=== PATIENT | male | born 1995 | race Caucasian/White ===

== ENCOUNTER 2016-10-28 03:51 | Emergency (ER) | payer OTHER ==
[2016-10-28] MEDS ORDERED: KETOROLAC 30 MG/ML VIAL (J1885) As Ordered ONE (04:24)
[2016-10-28 04:46] LABS: ABG BASE EXCESS 1.3 (-2.0-2.0); ABG DEVICE NASAL CANN; ABG HCO3 25.7 MEQ/L (22.0-26.0); ABG PARTIAL PRESSURE CO2 39.9 mmHg (35.0-45.0); ABG PARTIAL PRESSURE O2 91.5 mmHg (75.0-100.0); ABG STANDARD HCO3 25.6 MEQ/L (22.0-26.0); ABG TOTAL CO2 26.9 MEQ/L (22.0-29.0); ABG pH (ARTERIAL) 7.426 UNITS (7.350-7.450)
--- NOTE | 2016-10-28 05:15 | EDDOCDS ---
Nurse's Notes [facility] Name: Jh Nash Age: 21 yrs Sex: Male : 1995 Arrival Date: 10/28/2016 Time: 03:51 Bed 7 Private MD: Diagnosis: Pleurodynia Presentation: 10/28 03:56 Presenting complaint: Patient states: Right chest pain since Friday morning. Painful to kmg1 breath. Acute neurological deficits are not present. Mechanism of Injury: No Mechanism of Injury. Suicide/Homicide risk assessment- the patient denies having any suicidal and/or homicidal ideations and does not present with any other emotional, behavioral or mental health complaints. Status: Patient is not a wind turbine service technician or dependent. Transition of care: patient was not received from another setting of care. 03:56 Acuity: SINGH Level 3 kmg1 03:56 Method Of Arrival: Walkin/Carried/Asstd kmg1 05:14 Adult Sepsis Screening: The patient does not have new or worsening altered mentation. jp6 Patient's respiratory rate is less than 22. Systolic blood pressure is greater than 100. Patient has a qSOFA score of 0- Negative Sepsis Screen. Triage Assessment: 04:01 General: Appears in no apparent distress, comfortable, Behavior is appropriate for age, kmg1 cooperative, pleasant. Pain: Location: xyphoid area and right breast Pain currently is 3 out of 10 on a pain scale. At worst was 5 out of 10 on a pain scale. Quality of pain is described as sharp, Aggravated by breathing and coughing. HIV screening NA for this visit Offered previously. Respiratory: Airway is patent Respiratory effort is even, unlabored, Respiratory pattern is regular, symmetrical, Reports pain with respiration. Musculoskeletal: No deficits noted. Historical: - Allergies: No known drug Allergies; - Home Meds: 1. levothyroxine 150 mcg Oral tab 1 tab once daily (Last dose: 10/27/2016) 2. Mucinex 600 mg oral Ta12 1 tab as needed (Last dose: 10/25/2016) 3. multivitamin Oral tab 1 tablet daily (Last dose: 10/27/2016) 4. Novalog S/S Insulin Pump - PMHx: Diabetes - IDDM: controlled; Hypothyroidism; - PSHx: dental surgery; right knee meniscus repair (2008); right meniscus removal (2009); - Social history: Smoking status: Chewing Tobacco No barriers to communication noted, The patient speaks fluent Turkish, Speaks appropriately for age. - Family history: Not pertinent. - : The pt / caregiver states he / she is not on anticoagulants. Home medication list is obtained from the patient. - Exposure Risk Screening:: None identified. Screenin:14 Screening information is obtained from the patient. Fall risk: No risks identified. jp6 Assistance ADL's: requires no assistance with activities of daily living. Abuse/DV Screen: The patient / caregiver reports he/she is: not in a situation that causes fear, pain or injury. Nutritional screening: No deficits noted. Advance Directives: Currently, there is no health care proxy. There is no active DNR order. There is no living will. home support is adequate. Assessment: 04:14 Reassessment: Patient states symptoms have not improved. General: Appears jp6 uncomfortable, well developed, Behavior is appropriate for age, cooperative. Pain: Location: right breast Quality of pain is described as aching, Is since Friday am Aggravated by cougfhing. Neurological: No deficits noted. EENT: Reports has sinus infection x 3 days. Cardiovascular: Capillary refill < 3 seconds Heart tones S1 S2 present Rhythm is regular. Respiratory: Airway is patent Respiratory effort is even, unlabored, Respiratory pattern is regular, symmetrical, Breath sounds are diminished bilaterally. GI: No deficits noted. : No deficits noted. Derm: No deficits noted. Musculoskeletal: No deficits noted. 05:12 Reassessment: Patient states symptoms have improved. General: Appears in no apparent jp6 distress, comfortable, Behavior is appropriate for age, cooperative. Pain: Location: right breast Pain currently is 4 out of 10 on a pain scale. Quality of pain is described as aching. Cardiovascular: Rhythm is regular. Respiratory: Airway is patent Respiratory effort is even, unlabored, Respiratory pattern is regular, symmetrical. Derm: Skin is pink, warm & dry. Vital Signs: 04:01 BP 137 / 92; Pulse 107; Resp 18; Temp 98.0(O); Pulse Ox 98% on R/A; Weight 127.01 kg kmg1 (R); Height 6 ft. 3 in. (190.50 cm) (R); Pain 3/10; 05:04 BP 142 / 81; Pulse 91; Resp 20; Temp 98.4(TE); Pulse Ox 97% on R/A; Pain 0/10; jmv 04:01 Body Mass Index 35.00 (127.01 kg, 190.50 cm) [facility] Vitals: 04:01 Log In Time: October 28, 2016 at 03:33. [facility] ED Course: 03:52 Patient visited by Milady Dennison Reg. hs2 03:52 Patient moved to Waiting hs2 03:57 Triage Initiated [facility] 04:05 Patient moved to 7 km 04:07 Slime Piper,RN is Primary Nurse. jp6 04:08 Brandon Vela DO is Attending Physician. cs11 04:08 Patient visited by Brandon Vela DO. cs11 04:14 The patient / caregiver is instructed regarding the plan of care and ED course. jp6 04:26 Patient visited by Lorna Stapleton PCA. anabela 04:26 EKG done. (by ED staff). Reviewed by Brandon Vela DO. anabela 04:33 -Arterial Blood Gas: room air Sent. bb3 04:42 [facility] Payment Agreement was scanned into [employer] and attached to record. lja 05:05 Patient visited by Manjit Urbina PCA. jmv 05:12 No IV's were initiated during this patient's visit. No procedures done that require jp6 assistance. Administered Medications: 04:29 Drug: ketorolac 60 mg [ketorolac 30 mg/mL (1 mL) injection solution (2 mL)] Route: IM; jp6 Site: left deltoid; RT: 04:34 ABG's drawn from right radial artery pressure held for 5 minutes no bleeding noted bb3 pressure bandage applied specimen sent pt. tolerated well. Oxygen is room air. Order Results: Lab Order: -Arterial Blood Gas: room air; SPEC'M 10/28/16 04:29 Test: ABG pH (ARTERIAL); Value: 7.426; Range: 7.350-7.450; Units: UNITS; Status: F Test: ABG PARTIAL PRESSURE CO2; Value: 39.9; Range: 35.0-45.0; Units: mmHg; Status: F Test: ABG PARTIAL PRESSURE O2; Value: 91.5; Range: 75.0-100.0; Units: mmHg; Status: F Test: ABG TOTAL CO2; Value: 26.9; Range: 22.0-29.0; Units: MEQ/L; Status: F Test: ABG HCO3; Value: 25.7; Range: 22.0-26.0; Units: MEQ/L; Status: F Test: ABG BASE EXCESS; Value: 1.3; Range: -2.0-2.0; Status: F Test: ABG STANDARD HCO3; Value: 25.6; Range: 22.0-26.0; Units: MEQ/L; Status: F Test: ABG O2 SATURATION; Value: 97.6; Range: 95.0-99.0; Units: %; Status: F Test: ABG DEVICE; Value: NASAL MATILDA; Status: F Outcome: 04:54 Discharge ordered by Provider. cs11 05:12 Discharge Assessment: Patient awake, alert and oriented x 3. No cognitive and/or jp6 functional deficits noted. Patient verbalized understanding of disposition instructions. patient administered narcotics - no. The following High Risk Discharge criteria are identified: None. Discharged to home ambulatory. Condition: improved. Discharge instructions given to patient, Instructed on discharge instructions, follow up and referral plans. medication usage, Demonstrated understanding of instructions, medications, Pt was receptive of discharge instructions/ teaching. Prescriptions given X 1. No special radiology studies were completed. Property sent home with patient. 05:14 Patient left the ED. jp6 Signatures: Melinda Khan, RN RN kmg1 Garry Foster bb3 Lorna Stapleton, LACE MENDER LACE MENDER Brandon Koroma, DO cs11 Keenanl, Milady White, Reg Reg hs2 Slime Piper RN RN jp6 Manjit Urbina, LACE MENDER LACE MENDER jmv Corrections: (The following items were deleted from the chart) 03:57 03:56 Presenting complaint: kmg1 km MTDD
--- NOTE | 2016-10-28 05:15 | EDDOCDS ---
Physician Documentation [facility] Name: Jh Nash Age: 21 yrs Sex: Male : 1995 Arrival Date: 10/28/2016 Time: 03:51 Bed 7 Private MD: Disposition: 10/28/16 04:54 Discharged to Home/Self Care. Impression: Pleurodynia. - Condition is Stable. - Prescriptions for ketorolac 10 mg Oral Tablet - take 1 tablet by ORAL route 3 times per day As needed MDD- 30mg. Up to 5 days total use.; 15 tablet. - Medication Reconciliation, Local Pharmacy Hours form. - Follow up: Private Physician; When: Call to arrange an appointment; Reason: Recheck today's complaints. - Problem is new. - Symptoms have improved. Historical: - Allergies: No known drug Allergies; - Home Meds: 1. levothyroxine 150 mcg Oral tab 1 tab once daily (Last dose: 10/27/2016) 2. Mucinex 600 mg oral Ta12 1 tab as needed (Last dose: 10/25/2016) 3. multivitamin Oral tab 1 tablet daily (Last dose: 10/27/2016) 4. Novalog S/S Insulin Pump - PMHx: Diabetes - IDDM: controlled; Hypothyroidism; - PSHx: dental surgery; right knee meniscus repair (2008); right meniscus removal (2009); - Social history: Smoking status: Chewing Tobacco No barriers to communication noted, The patient speaks fluent Anguillan, Speaks appropriately for age. - Family history: Not pertinent. - : The pt / caregiver states he / she is not on anticoagulants. Home medication list is obtained from the patient. - Exposure Risk Screening:: None identified. Vital Signs: 10/28 04:01 BP 137 / 92; Pulse 107; Resp 18; Temp 98.0(O); Pulse Ox 98% on R/A; Weight 127.01 kg / kmg1 280.01 lbs (R); Height 6 ft. 3 in. (190.50 cm) (R); Pain 3/10; 05:04 BP 142 / 81; Pulse 91; Resp 20; Temp 98.4(TE); Pulse Ox 97% on R/A; Pain 0/10; jmv 04:01 Body Mass Index 35.00 (127.01 kg, 190.50 cm) kmg1 MDM: 04:15 Call Respiratory ordered. cs11 04:16 Call Respiratory complete. sls1 04:16 Chest, 1 View Ordered. EDMS 04:16 -Arterial Blood Gas: room air Ordered. EDMS 04:16 ECG WITH READING ER PHYS+CARDIAG ordered. EDMS 04:21 ketorolac 60 mg IM once ordered. cs11 04:42 [facility] Payment Agreement was scanned into [employer] and attached to record. lja 04:42 Financial registration complete. lja 04:52 -Arterial Blood Gas: room air Reviewed. cs11 Administered Medications: 04:29 Drug: ketorolac 60 mg [ketorolac 30 mg/mL (1 mL) injection solution (2 mL)] Route: IM; jp6 Site: left deltoid; Signatures: Dispatcher [employer] EDMelinda Macias, RN RN kmg1 Chloe Murray RN RN sls1 Brandon Vela, DO cs11 Arel, Slime Stinson,RN RN jp6 The chart was reviewed and I authenticate all verbal orders and agree with the evaluation and treatment provided.Attachments: 04:42 [facility] Payment Agreement lja MTDD
--- NOTE | 2016-10-28 09:38 | REP ---
Clinical: Chest pain . Comparison: 01/19/2016 . Findings: The mediastinum and cardiac silhouette are stable and within normal limits for portable technique. The lung stephenson are clear without acute consolidation, effusion, or pneumothorax. Skeletal structures are intact. Impression: Normal portable chest x-ray Signed by Manuel Muir MD 10/28/2016 09:30 A
--- NOTE | 2016-10-28 10:10 | ECGEPIP ---
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
--- NOTE | 2016-10-30 06:15 | EDDOCDS ---
Nurse's Notes [facility] Name: Jh Leary Age: 21 yrs Sex: Male : 1995 Arrival Date: 10/28/2016 Time: 03:51 Bed 7 Private MD: Diagnosis: Pleurodynia Presentation: 10/28 03:56 Presenting complaint: Patient states: Right chest pain since Friday morning. Painful to kmg1 breath. Acute neurological deficits are not present. Mechanism of Injury: No Mechanism of Injury. Suicide/Homicide risk assessment- the patient denies having any suicidal and/or homicidal ideations and does not present with any other emotional, behavioral or mental health complaints. Status: Patient is not a police service technician or dependent. Transition of care: patient was not received from another setting of care. 03:56 Acuity: SINGH Level 3 kmg1 03:56 Method Of Arrival: Walkin/Carried/Asstd kmg1 05:14 Adult Sepsis Screening: The patient does not have new or worsening altered mentation. jp6 Patient's respiratory rate is less than 22. Systolic blood pressure is greater than 100. Patient has a qSOFA score of 0- Negative Sepsis Screen. Triage Assessment: 04:01 General: Appears in no apparent distress, comfortable, Behavior is appropriate for age, kmg1 cooperative, pleasant. Pain: Location: xyphoid area and right breast Pain currently is 3 out of 10 on a pain scale. At worst was 5 out of 10 on a pain scale. Quality of pain is described as sharp, Aggravated by breathing and coughing. HIV screening NA for this visit Offered previously. Respiratory: Airway is patent Respiratory effort is even, unlabored, Respiratory pattern is regular, symmetrical, Reports pain with respiration. Musculoskeletal: No deficits noted. Historical: - Allergies: No known drug Allergies; - Home Meds: 1. levothyroxine 150 mcg Oral tab 1 tab once daily (Last dose: 10/27/2016) 2. Mucinex 600 mg oral Ta12 1 tab as needed (Last dose: 10/25/2016) 3. multivitamin Oral tab 1 tablet daily (Last dose: 10/27/2016) 4. Novalog S/S Insulin Pump - PMHx: Diabetes - IDDM: controlled; Hypothyroidism; - PSHx: dental surgery; right knee meniscus repair (2008); right meniscus removal (2009); - Social history: Smoking status: Chewing Tobacco No barriers to communication noted, The patient speaks fluent Wolof, Speaks appropriately for age. - Family history: Not pertinent. - : The pt / caregiver states he / she is not on anticoagulants. Home medication list is obtained from the patient. - Exposure Risk Screening:: None identified. Screenin:14 Screening information is obtained from the patient. Fall risk: No risks identified. jp6 Assistance ADL's: requires no assistance with activities of daily living. Abuse/DV Screen: The patient / caregiver reports he/she is: not in a situation that causes fear, pain or injury. Nutritional screening: No deficits noted. Advance Directives: Currently, there is no health care proxy. There is no active DNR order. There is no living will. home support is adequate. Assessment: 04:14 Reassessment: Patient states symptoms have not improved. General: Appears jp6 uncomfortable, well developed, Behavior is appropriate for age, cooperative. Pain: Location: right breast Quality of pain is described as aching, Is since Friday am Aggravated by cougfhing. Neurological: No deficits noted. EENT: Reports has sinus infection x 3 days. Cardiovascular: Capillary refill < 3 seconds Heart tones S1 S2 present Rhythm is regular. Respiratory: Airway is patent Respiratory effort is even, unlabored, Respiratory pattern is regular, symmetrical, Breath sounds are diminished bilaterally. GI: No deficits noted. : No deficits noted. Derm: No deficits noted. Musculoskeletal: No deficits noted. 05:12 Reassessment: Patient states symptoms have improved. General: Appears in no apparent jp6 distress, comfortable, Behavior is appropriate for age, cooperative. Pain: Location: right breast Pain currently is 4 out of 10 on a pain scale. Quality of pain is described as aching. Cardiovascular: Rhythm is regular. Respiratory: Airway is patent Respiratory effort is even, unlabored, Respiratory pattern is regular, symmetrical. Derm: Skin is pink, warm & dry. Vital Signs: 04:01 BP 137 / 92; Pulse 107; Resp 18; Temp 98.0(O); Pulse Ox 98% on R/A; Weight 127.01 kg kmg1 (R); Height 6 ft. 3 in. (190.50 cm) (R); Pain 3/10; 05:04 BP 142 / 81; Pulse 91; Resp 20; Temp 98.4(TE); Pulse Ox 97% on R/A; Pain 0/10; jmv 04:01 Body Mass Index 35.00 (127.01 kg, 190.50 cm) [facility] Vitals: 04:01 Log In Time: October 28, 2016 at 03:33. [facility] ED Course: 03:52 Patient visited by Milady Dennison, Reg. hs2 03:52 Patient moved to Waiting hs2 03:57 Triage Initiated [facility] 04:05 Patient moved to 7 km 04:07 Slime Piper,RN is Primary Nurse. jp6 04:08 Debra Metz DO is Attending Physician. cs11 04:08 Patient visited by Debra Metz DO. cs11 04:14 The patient / caregiver is instructed regarding the plan of care and ED course. jp6 04:26 Patient visited by Lorna Stapleton PCA. anabela 04:26 EKG done. (by ED staff). Reviewed by Debra Metz DO. anabela 04:33 -Arterial Blood Gas: room air Sent. bb3 04:42 [facility] Payment Agreement was scanned into [employer] and attached to record. lja 05:05 Patient visited by Manjit Urbina PCA. jmv 05:12 No IV's were initiated during this patient's visit. No procedures done that require jp6 assistance. 09:56 Chest, 1 View Returned. EDMS 10:20 EKG-ADULT Returned. EDMS 14:46 T-Sheet-- Draft Copy was scanned into [employer] and attached to record. gb 14:46 ECG/EKG was scanned into [employer] and attached to record. gb Administered Medications: 04:29 Drug: ketorolac 60 mg [ketorolac 30 mg/mL (1 mL) injection solution (2 mL)] Route: IM; jp6 Site: left deltoid; RT: 04:34 ABG's drawn from right radial artery pressure held for 5 minutes no bleeding noted bb3 pressure bandage applied specimen sent pt. tolerated well. Oxygen is room air. Order Results: Lab Order: -Arterial Blood Gas: room air; SPEC'M 10/28/16 04:29 Test: ABG pH (ARTERIAL); Value: 7.426; Range: 7.350-7.450; Units: UNITS; Status: F Test: ABG PARTIAL PRESSURE CO2; Value: 39.9; Range: 35.0-45.0; Units: mmHg; Status: F Test: ABG PARTIAL PRESSURE O2; Value: 91.5; Range: 75.0-100.0; Units: mmHg; Status: F Test: ABG TOTAL CO2; Value: 26.9; Range: 22.0-29.0; Units: MEQ/L; Status: F Test: ABG HCO3; Value: 25.7; Range: 22.0-26.0; Units: MEQ/L; Status: F Test: ABG BASE EXCESS; Value: 1.3; Range: -2.0-2.0; Status: F Test: ABG STANDARD HCO3; Value: 25.6; Range: 22.0-26.0; Units: MEQ/L; Status: F Test: ABG O2 SATURATION; Value: 97.6; Range: 95.0-99.0; Units: %; Status: F Test: ABG DEVICE; Value: NASAL MATILDA; Status: F Radiology Order: Chest, 1 View Test: Chest, 1 View REASON FOR EXAMINATION: Chest Pain; Clinical: Chest pain .; ; Comparison: 01/19/2016 .; ; Findings:; The mediastinum and cardiac silhouette are stable and within normal limits for; portable technique. The lung stephenson are clear without acute consolidation,; effusion, or pneumothorax. 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 cs11 05:12 Discharge Assessment: Patient awake, alert and oriented x 3. No cognitive and/or jp6 functional deficits noted. Patient verbalized understanding of disposition instructions. patient administered narcotics - no. The following High Risk Discharge criteria are identified: None. Discharged to home ambulatory. Condition: improved. Discharge instructions given to patient, Instructed on discharge instructions, follow up and referral plans. medication usage, Demonstrated understanding of instructions, medications, Pt was receptive of discharge instructions/ teaching. Prescriptions given X 1. No special radiology studies were completed. Property sent home with patient. 05:14 Patient left the ED. jp6 Signatures: Dispatcher [employer] EDMS Melinda Khan, RN RN kmg1 Eli Cowan, Reg Reg gb Cristian,Garry bb3 Lorna Stapleton, WAREHOUSE ASSOCIATE WAREHOUSE ASSOCIATE anabela Debra Metz, DO DO cs11 Arel, Milady White, Reg Reg hs2 Slime Piper,SONIA RN jp6 Manjit Urbina, WAREHOUSE ASSOCIATE WAREHOUSE ASSOCIATE jmv Corrections: (The following items were deleted from the chart) 03:57 03:56 Presenting complaint: km km Chart Complete MTDD
--- NOTE | 2016-10-30 06:15 | EDDOCDS ---
Physician Documentation [facility] Name: Jh Nash Age: 21 yrs Sex: Male : 1995 Arrival Date: 10/28/2016 Time: 03:51 Bed 7 Private MD: Disposition: 10/28/16 04:54 Discharged to Home/Self Care. Impression: Pleurodynia. - Condition is Stable. - Prescriptions for ketorolac 10 mg Oral Tablet - take 1 tablet by ORAL route 3 times per day As needed MDD- 30mg. Up to 5 days total use.; 15 tablet. - Medication Reconciliation, Local Pharmacy Hours form. - Follow up: Private Physician; When: Call to arrange an appointment; Reason: Recheck today's complaints. - Problem is new. - Symptoms have improved. Historical: - Allergies: No known drug Allergies; - Home Meds: 1. levothyroxine 150 mcg Oral tab 1 tab once daily (Last dose: 10/27/2016) 2. Mucinex 600 mg oral Ta12 1 tab as needed (Last dose: 10/25/2016) 3. multivitamin Oral tab 1 tablet daily (Last dose: 10/27/2016) 4. Novalog S/S Insulin Pump - PMHx: Diabetes - IDDM: controlled; Hypothyroidism; - PSHx: dental surgery; right knee meniscus repair (2008); right meniscus removal (2009); - Social history: Smoking status: Chewing Tobacco No barriers to communication noted, The patient speaks fluent Vietnamese, Speaks appropriately for age. - Family history: Not pertinent. - : The pt / caregiver states he / she is not on anticoagulants. Home medication list is obtained from the patient. - Exposure Risk Screening:: None identified. Vital Signs: 10/28 04:01 BP 137 / 92; Pulse 107; Resp 18; Temp 98.0(O); Pulse Ox 98% on R/A; Weight 127.01 kg / kmg1 280.01 lbs (R); Height 6 ft. 3 in. (190.50 cm) (R); Pain 3/10; 05:04 BP 142 / 81; Pulse 91; Resp 20; Temp 98.4(TE); Pulse Ox 97% on R/A; Pain 0/10; jmv 04:01 Body Mass Index 35.00 (127.01 kg, 190.50 cm) kmg1 MDM: 04:15 Call Respiratory ordered. cs11 04:16 Call Respiratory complete. sls1 04:16 Chest, 1 View Ordered. EDMS 04:16 -Arterial Blood Gas: room air Ordered. EDMS 04:16 ECG WITH READING ER PHYS+CARDIAG ordered. EDMS 04:21 ketorolac 60 mg IM once ordered. cs11 04:42 [facility] Payment Agreement was scanned into [employer] and attached to record. lja 04:42 Financial registration complete. lja 04:52 -Arterial Blood Gas: room air Reviewed. cs11 14:46 T-Sheet-- Draft Copy was scanned into [employer] and attached to record. gb 14:46 ECG/EKG was scanned into [employer] and attached to record. gb Administered Medications: 04:29 Drug: ketorolac 60 mg [ketorolac 30 mg/mL (1 mL) injection solution (2 mL)] Route: IM; jp6 Site: left deltoid; Signatures: Dispatcher [employer] EDMS Melinda Khan, RN RN km Eli Cowan, Reg Reg gb Chloe Murray, RN RN sls1 Brandon Vela, DO DO cs11 Arel, Slime Stinson,RN RN jp6 The chart was reviewed and I authenticate all verbal orders and agree with the evaluation and treatment provided.Attachments: 04:42 [facility] Payment Agreement a 14:46 T-Sheet-- Draft Copy gb 14:46 ECG/EKG gb Chart Complete MTDD
--- NOTE | 2016-10-30 06:15 | EDDOCDS ---
Physician Documentation [facility] Name: Jh Nash Age: 21 yrs Sex: Male : 1995 Arrival Date: 10/28/2016 Time: 03:51 Bed 7 Private MD: Disposition: 10/28/16 04:54 Discharged to Home/Self Care. Impression: Pleurodynia. - Condition is Stable. - Prescriptions for ketorolac 10 mg Oral Tablet - take 1 tablet by ORAL route 3 times per day As needed MDD- 30mg. Up to 5 days total use.; 15 tablet. - Medication Reconciliation, Local Pharmacy Hours form. - Follow up: Private Physician; When: Call to arrange an appointment; Reason: Recheck today's complaints. - Problem is new. - Symptoms have improved. Historical: - Allergies: No known drug Allergies; - Home Meds: 1. levothyroxine 150 mcg Oral tab 1 tab once daily (Last dose: 10/27/2016) 2. Mucinex 600 mg oral Ta12 1 tab as needed (Last dose: 10/25/2016) 3. multivitamin Oral tab 1 tablet daily (Last dose: 10/27/2016) 4. Novalog S/S Insulin Pump - PMHx: Diabetes - IDDM: controlled; Hypothyroidism; - PSHx: dental surgery; right knee meniscus repair (2008); right meniscus removal (2009); - Social history: Smoking status: Chewing Tobacco No barriers to communication noted, The patient speaks fluent [place], Speaks appropriately for age. - Family history: Not pertinent. - : The pt / caregiver states he / she is not on anticoagulants. Home medication list is obtained from the patient. - Exposure Risk Screening:: None identified. Vital Signs: 10/28 04:01 BP 137 / 92; Pulse 107; Resp 18; Temp 98.0(O); Pulse Ox 98% on R/A; Weight 127.01 kg / kmg1 280.01 lbs (R); Height 6 ft. 3 in. (190.50 cm) (R); Pain 3/10; 05:04 BP 142 / 81; Pulse 91; Resp 20; Temp 98.4(TE); Pulse Ox 97% on R/A; Pain 0/10; jmv 04:01 Body Mass Index 35.00 (127.01 kg, 190.50 cm) kmg1 MDM: 04:15 Call Respiratory ordered. cs11 04:16 Call Respiratory complete. sls1 04:16 Chest, 1 View Ordered. EDMS 04:16 -Arterial Blood Gas: room air Ordered. EDMS 04:16 ECG WITH READING ER PHYS+CARDIAG ordered. EDMS 04:21 ketorolac 60 mg IM once ordered. cs11 04:42 [facility] Payment Agreement was scanned into [employer] and attached to record. lja 04:42 Financial registration complete. lja 04:52 -Arterial Blood Gas: room air Reviewed. cs11 14:46 T-Sheet-- Draft Copy was scanned into [employer] and attached to record. gb 14:46 ECG/EKG was scanned into [employer] and attached to record. gb Administered Medications: 04:29 Drug: ketorolac 60 mg [ketorolac 30 mg/mL (1 mL) injection solution (2 mL)] Route: IM; jp6 Site: left deltoid; Signatures: Dispatcher [employer] EDMS Melinda Khan, RN RN km Eli Cowan, Reg Reg gb Chloe Murray, RN RN sls1 Brandon Vela, DO DO cs11 Arel, Slime Stinson,RN RN jp6 The chart was reviewed and I authenticate all verbal orders and agree with the evaluation and treatment provided.Attachments: 04:42 [facility] Payment Agreement a 14:46 T-Sheet-- Draft Copy gb 14:46 ECG/EKG gb Chart Complete MTDD
== END 2016-10-28 05:14 | disposition home or self-care (01) ==
LOC: M ED 03:51
DX: R07.81 Pleurodynia (principal); E10.9 Type 1 diabetes mellitus without complications; E03.9 Hypothyroidism, unspecified; F17.228 Nicotine dependence, chewing tobacco, with other nicotine-induced disorders; Z96.41 Presence of insulin pump (external) (internal); Z79.899 Other long term (current) drug therapy
CPT/HCPCS: 36600; 71010; 82803; 93005; 96372; 99284; J1885

== ENCOUNTER 2017-05-29 21:57 | Emergency (ER) | payer OTHER ==
[~2017-05-29] VITALS: Ht 188 cm; Wt 131.8 kg
[2017-05-29 21:57] VITALS: BP 157/85
[2017-05-29] MEDS ORDERED: INSUH10VL (22:08)
[2017-05-29] MEDS ORDERED: LEVO150T7 (22:08)
[2017-05-29] MEDS ORDERED: LIDO1SOL7 MT (22:56)
== END 2017-05-29 23:00 | disposition home or self-care (01) ==
LOC: M ED 21:57
DX: J02.9 Acute pharyngitis, unspecified (principal); E11.9 Type 2 diabetes mellitus without complications; E07.9 Disorder of thyroid, unspecified; Z79.4 Long term (current) use of insulin; Z79.899 Other long term (current) drug therapy

== ENCOUNTER 2017-10-24 15:44 | Emergency (ER) | payer OTHER | END 2017-10-24 16:23 | disposition home or self-care (01) | LOC: M ED 15:44 | DX: S06.0X0A Concussion without loss of consciousness, initial encounter (principal); W07.XXXA Fall from chair, initial encounter; Y92.89 Other specified places as the place of occurrence of the external cause; Y93.89 Activity, other specified; Y99.0 Civilian activity done for income or pay; E10.9 Type 1 diabetes mellitus without complications; E03.9 Hypothyroidism, unspecified; F17.200 Nicotine dependence, unspecified, uncomplicated; Z79.899 Other long term (current) drug therapy | CPT/HCPCS: 99282 ==

== ENCOUNTER 2017-11-10 13:08 | Emergency (ER) | payer OTHER ==
[2017-11-10] MEDS: methylPREDNISolone INJ 125 MG/2 ML VIAL (J2930) IM (16:26)
== END 2017-11-10 16:30 | disposition home or self-care (01) ==
LOC: M ED 13:08
DX: K12.2 Cellulitis and abscess of mouth (principal); E10.9 Type 1 diabetes mellitus without complications; Z79.4 Long term (current) use of insulin; Z79.890 Hormone replacement therapy
CPT/HCPCS: J2930

== ENCOUNTER → 2018-07-10 | Outpatient (CLI) | payer OTHER | LOC: M WUC 15:43 | DX: S00.33XA Contusion of nose, initial encounter (principal); X58.XXXA Exposure to other specified factors, initial encounter; Y92.9 Unspecified place or not applicable; J34.2 Deviated nasal septum; M79.89 Other specified soft tissue disorders | CPT/HCPCS: 70160 ==

== ENCOUNTER 2018-12-20 07:03 | Emergency (ER) | payer OTHER ==
[~2018-12-20] VITALS: Ht 190.5 cm; Wt 136.4 kg
[~2018-12-20 07:03] MED LIST: AMOX875T; INSUH10VL; LEVO150T7; LIDO1SOL7 MT; PRED20TA PO
[2018-12-20 07:04] VITALS: BP 163/85
[2018-12-20] MEDS ORDERED: MULTCAP PO (07:11)
[2018-12-20] MEDS ORDERED: LANTINJ4 SC (07:11)
[2018-12-20] MEDS ORDERED: VITA100066 PO (07:11)
[2018-12-20] MEDS ORDERED: LIPI20TA PO (07:11)
--- NOTE | 2018-12-22 12:19 | REP ---
The left and four B : There is no fracture or dislocation. Mineralization and joint spaces are normal. There are no calcifications or foreign bodies. Impression: Negative Left hand . Electronically Signed by Santo White MD 12/20/2018 07:42 A
== END 2018-12-20 08:03 | disposition home or self-care (01) ==
LOC: M ED 07:03
DX: S60.222A Contusion of left hand, initial encounter (principal); W22.8XXA Striking against or struck by other objects, initial encounter; Y92.59 Other trade areas as the place of occurrence of the external cause; Y99.0 Civilian activity done for income or pay; E10.65 Type 1 diabetes mellitus with hyperglycemia; G47.33 Obstructive sleep apnea (adult) (pediatric); E78.70 Disorder of bile acid and cholesterol metabolism, unspecified; E07.9 Disorder of thyroid, unspecified; F31.9 Bipolar disorder, unspecified; Z79.4 Long term (current) use of insulin; Z79.899 Other long term (current) drug therapy; Z88.0 Allergy status to penicillin

== ENCOUNTER → 2020-04-21 | Outpatient (CLI) | payer OTHER ==
[~2020-04-21] MED LIST changes: +LANTINJ4 SC; -LIDO1SOL7 MT; +LIDO2SOL17 MT; +LIPI20TA PO; +MULTCAP PO; +VITA100066 PO
--- NOTE | 2020-05-01 14:21 | SLEEPHOME ---
DATE OF STUDY: 04/21/2020 ORDERED BY: Soheila Villegas Diagnostic home sleep testing was performed due to concern for the obstructive sleep apnea syndrome. For testing, a nocturnal T3 respiratory monitoring device was used. Continuous record was made of pulse, oxygen saturation, airflow, chest and abdominal strain and body position. 9 hours and 59 minutes of data were reviewed. There were 6 hours and 19 minutes marked as time in bed. During the interval marked time in bed, there were 48 respiratory events identified of 10 seconds in duration or greater for a respiratory event index of 7.6. The events were primarily obstructive. Baseline pulse rate 79 beats per minute, pulse rate ranged 34-151. Baseline saturation 94%, saturations fell to 83%. Testing was performed in both the supine and nonsupine positions. IMPRESSION: Abnormal home sleep testing with repetitive respiratory events and oxygen desaturations to 83% with a respiratory event index of 7.6 is consistent with the obstructive sleep apnea syndrome. RECOMMENDATION: The patient should be encouraged to pursue referral for formal sleep evaluation.
== END ==
LOC: M SLEEP HO 09:50
PROVIDERS: ATTEND Nurse Practitioner Family
DX: G47.33 Obstructive sleep apnea (adult) (pediatric) (principal)

== ENCOUNTER → 2020-06-22 | Outpatient (CLI) | payer OTHER ==
[~2020-06-22] MED LIST changes: +ADME100I; +ATOR1TAB21; +BASA100I; +DOXY100C37; +LEVO175T2
== END ==
LOC: M LABSMTC 13:06
PROVIDERS: ATTEND Family Medicine
DX: Z20.828 Contact with and (suspected) exposure to other viral communicable diseases (principal)
CPT/HCPCS: C9803; U0003

== ENCOUNTER → 2020-06-23 | Outpatient (CLI) | payer OTHER ==
[2020-06-23 15:57] LABS: ALT/SGPT 36 U/L (12-78); BILIRUBIN,TOTAL 0.6 MG/DL (0.2-1.0); BLOOD UREA NITROGEN 12 MG/DL (7-18); CALCIUM LEVEL 9.6 MG/DL (8.5-10.1); CARBON DIOXIDE LEVEL 30 MEQ/L (21-32); CHLORIDE LEVEL 106 MEQ/L (98-107); CHOLESTEROL LEVEL 148 MG/DL (<200); CHOLESTEROL RISK RATIO 2.312 (<5); CREATININE FOR GFR 1.16 MG/DL (0.70-1.30); FREE T4 0.89 NG/DL (0.76-1.46); GLOMERULAR FILTRATION RATE > 60.0 (>60); GLUCOSE, FASTING 116 MG/DL (70-100); HDL CHOLESTEROL 64 MG/DL (>40); LDL CHOLESTEROL 66 MG/DL (<100); NON-HDL-C 84 MG/DL; POTASSIUM SERUM 5.4 MEQ/L (3.5-5.1); SODIUM LEVEL 142 MEQ/L (136-145); TOTAL PROTEIN 7.2 GM/DL (6.4-8.2); TRIGLYCERIDES LEVEL 89 MG/DL (<150)
[2020-06-23 17:51] LABS: HEMOGLOBIN A1c 6.9 %
== END ==
LOC: M WUC 10:35
PROVIDERS: ATTEND Nurse Practitioner Family
DX: E03.9 Hypothyroidism, unspecified (principal)

== ENCOUNTER 2020-08-17 10:35 | Emergency (ER) | payer OTHER ==
[~2020-08-17] VITALS: Ht 190.5 cm; Wt 143.3 kg
[~2020-08-17 10:35] MED LIST changes: -ADME100I; -ATOR1TAB21; -BASA100I; -DOXY100C37; -LEVO175T2
[2020-08-17] MEDS ORDERED: ADME100I (10:46)
[2020-08-17] MEDS ORDERED: ATOR1TAB21 (10:46)
[2020-08-17] MEDS ORDERED: LEVO175T2 (10:46)
[2020-08-17] MEDS ORDERED: BASA100I (10:46)
[2020-08-17] MEDS ORDERED: DOXY100C37 (10:46)
--- NOTE | 2020-08-17 12:07 | REPVR ---
PROCEDURE INFORMATION: Exam: XR Chest, 2 Views Exam date and time: 08/17/2020 11:47 AM Age: 25 years old Clinical indication: Cough and shortness of breath; Additional info: Chest pain/cough TECHNIQUE: Imaging protocol: XR of the chest Views: Frontal and lateral upright views. COMPARISON: CR Chest, 1 view 10/28/2016 4:30 AM FINDINGS: Lungs: The lungs are clear bilaterally. The pulmonary vasculature is normal. Pleural space: No pleural effusion. No pneumothorax. Heart/Mediastinum: The heart is normal in size and contour. Mediastinum: Stable. Bones/joints: Mild leftward upper thoracic and rightward mid-lower thoracic spinal curvature. IMPRESSION: No acute cardiopulmonary abnormality identified. Electronically signed by: Kye Carias On 08/17/2020 12:07:13 PM
[2020-08-17 12:14] LABS: MONO SCRN NEGATIVE (NEGATIVE)
[2020-08-17 12:25] LABS: BLOOD UREA NITROGEN 15 MG/DL (7-18); CALCIUM LEVEL 10.4 MG/DL (8.5-10.1); CARBON DIOXIDE LEVEL 26 MEQ/L (21-32); CHLORIDE LEVEL 103 MEQ/L (98-107); CK-MB VALUE MASS 1.7 NG/ML (<3.6); CPK CREATINE PHOSPHOKINASE 315 U/L (39-308); CREATININE FOR GFR 1.04 MG/DL (0.70-1.30); GLOMERULAR FILTRATION RATE > 60.0 (>60); GLUCOSE, FASTING 146 MG/DL (70-100); MB/CK RELATIVE INDEX 0.54 (< OR =4); POTASSIUM SERUM 4.5 MEQ/L (3.5-5.1); SODIUM LEVEL 135 MEQ/L (136-145)
[2020-08-17 12:26] LABS: TROPONIN I < 0.02 NG/ML (< 0.10)
[2020-08-17 12:45] LABS: BASO # 0.1 10^3/uL (0.0-0.2); BASO % 0.6 % (0.0-1.0); EOS # 0.3 10^3/uL (0.0-0.5); EOS % 2.1 % (0.0-3.0); HEMATOCRIT 45.3 % (42.0-52.0); LYMPH # 2.1 10^3/uL (1.5-5.0); LYMPH % 16.9 % (24.0-44.0); MEAN CORPUSCULAR HEMOGLOBIN 30.1 pg (27.0-33.0); MEAN CORPUSCULAR HGB CONC 33.1 g/dl (32.0-36.5); MEAN CORPUSCULAR VOLUME 90.8 fl (80.0-96.0); MONO # 0.9 10^3/uL (0.0-0.8); MONO % 7.3 % (0.0-5.0); NEUTROPHILS % 72.6 % (36.0-66.0); PLATELET COUNT, AUTOMATED 341 10^3/uL (150-450); RED BLOOD COUNT 4.99 10^6/uL (4.30-6.10); WHITE BLOOD COUNT 12.4 10^3/uL (4.0-10.0)
[2020-08-17 13:10] VITALS: BP 153/85
--- NOTE | 2020-08-18 20:15 | ECGEPIP ---
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
== END 2020-08-17 13:11 | disposition home or self-care (01) ==
LOC: M ED 10:35
DX: K12.2 Cellulitis and abscess of mouth (principal); J06.9 Acute upper respiratory infection, unspecified; B34.9 Viral infection, unspecified; E10.9 Type 1 diabetes mellitus without complications; F17.220 Nicotine dependence, chewing tobacco, uncomplicated; Z88.0 Allergy status to penicillin; Z79.4 Long term (current) use of insulin; Z79.899 Other long term (current) drug therapy

== ENCOUNTER → 2022-03-04 | Outpatient (REF) | payer OTHER ==
[~2022-03-04] MED LIST changes: +ADME100I; +ATOR1TAB21; +BASA100I; +DOXY-443; +LEVO175T2
[2022-03-04 16:42] LABS: RSV AMPLIFICATION NEGATIVE (NEGATIVE)
== END ==
LOC: M WUC 15:39
PROVIDERS: ATTEND Physician Assistant
DX: R50.9 Fever, unspecified (principal)

== ENCOUNTER → 2023-01-23 | Outpatient (REF) | payer OTHER, MEDICAID ==
[~2023-01-23] MED LIST changes: +LIDO15SO4 MT; -LIDO2SOL17 MT
== END ==
LOC: M LAB REF 16:36
PROVIDERS: ATTEND Surgery
DX: L05.01 Pilonidal cyst with abscess (principal)

== ENCOUNTER 2024-07-04 12:00 | Emergency (ER) | payer BC, MEDICAID, OTHER, SELFPAY ==
[~2024-07-04] VITALS: Ht 190.5 cm; Wt 143.6 kg
[~2024-07-04 12:00] MED LIST changes: +DOXY-323; -DOXY-443; -LIDO15SO4 MT; +LIDO15SO8 MT
[2024-07-04 13:15] LABS: BASO # 0.1 10^3/uL (0.0-0.2); BASO % 0.5 % (0.0-1.0); EOS # 0.2 10^3/uL (0.0-0.5); EOS % 1.3 % (0.0-3.0); HEMATOCRIT 44.1 % (42.0-52.0); HEMOGLOBIN 15.1 g/dl (13.5-17.5); LYMPH # 1.4 10^3/uL (1.5-5.0); LYMPH % 8.5 % (24.0-44.0); MEAN CORPUSCULAR HEMOGLOBIN 31.3 pg (27.0-33.0); MEAN CORPUSCULAR HGB CONC 34.2 g/dl (32.0-36.5); MEAN CORPUSCULAR VOLUME 91.3 fl (80.0-96.0); MONO % 6.4 % (2.0-8.0); NEUTROPHILS # 13.5 10^3/uL (1.5-8.5); NEUTROPHILS % 82.7 % (36.0-66.0); PLATELET COUNT, AUTOMATED 291 10^3/uL (150-450); RED BLOOD COUNT 4.83 10^6/uL (4.30-6.10); WHITE BLOOD COUNT 16.3 10^3/uL (4.0-10.0)
[2024-07-04 13:36] LABS: ETHYL ALCOHOL (ETHANOL) < 0.003 % (0.000-0.010)
[2024-07-04 13:38] LABS: ALBUMIN 3.9 G/DL (3.2-5.2); ALKALINE PHOSPHATASE 118 U/L (46-116); ALT/SGPT 35 U/L (7.0-40); AST/SGOT 20 U/L (<34); BILIRUBIN,DIRECT 0.1 MG/DL (<0.4); BILIRUBIN,TOTAL 0.5 MG/DL (0.3-1.2); BLOOD UREA NITROGEN 17 MG/DL (9-23); CALCIUM LEVEL 9.3 MG/DL (8.5-10.1); CARBON DIOXIDE LEVEL 25 MMOL/L (20-31); CHLORIDE LEVEL 105 MMOL/L (98-107); CK-MB VALUE MASS < 1.0 NG/ML (<3.6); CREATININE FOR GFR 0.88 MG/DL (0.70-1.30); GLOMERULAR FILTRATION RATE > 60.0 (>60); GLUCOSE, FASTING 242 MG/DL (60-100); MAGNESIUM LEVEL 1.9 MG/DL (1.8-2.4); PHOSPHORUS LEVEL 3.2 MG/DL (2.5-4.9); POTASSIUM SERUM 4.5 MMOL/L (3.5-5.1); SODIUM LEVEL 136 MMOL/L (136-145)
[2024-07-04 13:41] LABS: CPK CREATINE PHOSPHOKINASE 180 U/L (46-171); MB/CK RELATIVE INDEX 0.55 (< OR =4)
[2024-07-04] MEDS: MORPHINE 2 MG/ML 1ML VIAL IV ONE (13:47)
[2024-07-04 14:04] VITALS: BP 123/72
[2024-07-04 14:26] LABS: CK-MB VALUE MASS < 1.0 NG/ML (<3.6)
[2024-07-04 14:29] LABS: CPK CREATINE PHOSPHOKINASE 205 U/L (46-171); MB/CK RELATIVE INDEX 0.48 (< OR =4)
[2024-07-04] MEDS ORDERED: PERC5TAB12 PO (14:43)
[2024-07-04 14:45] VITALS: O2SAT 99
[2024-07-04 16:05] VITALS: TEMP 98.7
== END 2024-07-04 16:07 | disposition home or self-care (01) ==
LOC: M ED 12:00
DX: R55 Syncope and collapse (principal); S42.252A Displaced fracture of greater tuberosity of left humerus, initial encounter for closed fracture; W19.XXXA Unspecified fall, initial encounter; E11.9 Type 2 diabetes mellitus without complications; E78.5 Hyperlipidemia, unspecified; E03.9 Hypothyroidism, unspecified; F17.220 Nicotine dependence, chewing tobacco, uncomplicated; F10.10 Alcohol abuse, uncomplicated; Z88.0 Allergy status to penicillin; Z79.02 Long term (current) use of antithrombotics/antiplatelets; Z79.4 Long term (current) use of insulin; Z79.899 Other long term (current) drug therapy; Y99.9 Unspecified external cause status; Y93.89 Activity, other specified; Y92.9 Unspecified place or not applicable

== ENCOUNTER → 2024-07-06 | Outpatient (CLI) | payer BC ==
[~2024-07-06] MED LIST changes: +PERC5TAB12 PO
== END ==
LOC: M RAD 12:17
PROVIDERS: ATTEND Physician Assistant
DX: S42.202D Unspecified fracture of upper end of left humerus, subsequent encounter for fracture with routine healing (principal)

== ENCOUNTER → 2024-07-16 | Outpatient (CLI) | payer BC ==
[2024-07-16 12:29] LABS: BASO # 0.1 10^3/uL (0.0-0.2); EOS # 0.3 10^3/uL (0.0-0.5); HEMATOCRIT 42.5 % (42.0-52.0); HEMOGLOBIN 14.2 g/dl (13.5-17.5); LYMPH % 29.4 % (24.0-44.0); MEAN CORPUSCULAR HEMOGLOBIN 30.9 pg (27.0-33.0); MEAN CORPUSCULAR HGB CONC 33.4 g/dl (32.0-36.5); MEAN CORPUSCULAR VOLUME 92.6 fl (80.0-96.0); MONO # 0.6 10^3/uL (0.0-0.8); MONO % 9.2 % (2.0-8.0); NEUTROPHILS # 3.8 10^3/uL (1.5-8.5); NEUTROPHILS % 55.7 % (36.0-66.0); PLATELET COUNT, AUTOMATED 292 10^3/uL (150-450); RED BLOOD COUNT 4.59 10^6/uL (4.30-6.10); WHITE BLOOD COUNT 6.7 10^3/uL (4.0-10.0)
[2024-07-16 12:40] LABS: INR 1.01
[2024-07-16 12:55] LABS: THYROID STIMULATING HORMONE 4.162 uIU/ML (0.55-4.78)
[2024-07-16 12:56] LABS: FREE T4 1.17 NG/DL (0.89-1.76)
[2024-07-16 13:02] LABS: HEMOGLOBIN A1c 8.5 % (4.0-6.0)
[2024-07-16 13:27] LABS: BLOOD UREA NITROGEN 15 MG/DL (9-23); CALCIUM LEVEL 9.5 MG/DL (8.5-10.1); CARBON DIOXIDE LEVEL 26 MMOL/L (20-31); CHLORIDE LEVEL 105 MMOL/L (98-107); CREATININE FOR GFR 0.88 MG/DL (0.70-1.30); GLOMERULAR FILTRATION RATE > 60.0 (>60); GLUCOSE, FASTING 423 MG/DL (60-100); POTASSIUM SERUM 5.2 MMOL/L (3.5-5.1); SODIUM LEVEL 134 MMOL/L (136-145)
== END ==
LOC: M LAB 11:12
PROVIDERS: ATTEND Nurse Practitioner Family
DX: Z01.818 Encounter for other preprocedural examination (principal); E10.65 Type 1 diabetes mellitus with hyperglycemia; E03.9 Hypothyroidism, unspecified